=== PATIENT | female | born 1940 | race Caucasian/White ===

== ENCOUNTER 2022-06-15 12:00 | Observation (INO) | payer MEDICARE ==
[~2022-06-15] VITALS: Ht 154.9 cm; Wt 83.0 kg
[2022-06-15 11:40] LABS: HEMATOCRIT 37.2 % (36-48); MEAN CORPUSCULAR HEMOGLOBIN 28.5 pg (27.0-33.0); MEAN CORPUSCULAR HGB CONC 32.5 g/dL (32.0-36.0); MEAN CORPUSCULAR VOLUME 87.5 fL (79-99); PLATELET COUNT (AUTO) 273 K/uL (130-400); RED BLOOD CELL COUNT(AUTO) 4.25 MIL/uL (4.00-5.50); RED CELL DISTRIBUTION WIDTH 12.9 % (11.0-15.5); WHITE BLOOD COUNT (AUTO) 6.1 K/uL (4.8-10.8)
[2022-06-15 11:42] LABS: CHLORIDE,URINE RANDOM 138 mmol/L (110-250); POTASSIUM,URINE RANDOM 57 mmol/L (25-125); SODIUM,URINE RANDOM 123 mmol/l (40-220)
[2022-06-15 12:19] LABS: EOSINOPHILS % (MANUAL) 3 % (1-6); LYMPHOCYTES % (MANUAL) 36 % (22-44); MAN.DIFF COMMENT-IMPRESSION MANUAL DIFFERENTIAL; MONOCYTES % (MANUAL) 9 % (2-9); PLATELET MORPHOLOGY COMMENT ADEQUATE; SEGMENTED NEUTROPHILS % 52 % (40-70)
[2022-06-17 08:39] VITALS: BP 156/75
[2022-06-17] MEDS ORDERED: METF-444 PO ×2 (09:43)
[2022-06-17] MEDS ORDERED: ASPI-1197 PO (09:43)
[2022-06-17] MEDS ORDERED: ERGO500093 PO (09:43)
[2022-06-17] MEDS ORDERED: FOLI0.4T6 PO (09:43)
[2022-06-17] MEDS ORDERED: AMLO-258 PO (09:43)
[2022-06-17] MEDS ORDERED: LOSA100T58 PO (09:43)
[2022-06-17] MEDS ORDERED: ZINC220T4 PO (09:43)
[2022-06-17] MEDS ORDERED: VITA1TAB22 PO (09:43)
[2022-06-18] VITALS (27 sets, daily range): BP systolic 74–155; BP diastolic 33–63
[2022-06-18] MEDS ORDERED: BUPIVACAINE/EPI/PF 0.5% 30ML VIAL IJ ONE (05:12)
[2022-06-18] MEDS ORDERED: MORPHINE PF 100MG/10ML AMP IV ONE (05:12)
[2022-06-18] MEDS ORDERED: THROMBIN-JMI 20000 UNIT KIT TP ONE (05:12)
[2022-06-18] MEDS ORDERED: CEFAZOLIN SODIUM 1 GM VIAL ONE (05:12)
[2022-06-18] MEDS ORDERED: DEXMEDETOMIDINE HCL 200 MCG/2 ML VIAL IV ONE (05:22)
[2022-06-18] MEDS ORDERED: LIDOCAINE HCL 1% 20 ML VIAL ONE (05:29)
[2022-06-18] MEDS: CLINDAMYCIN IVPB 900MG/50ML 50 ML IV SCH ×7 (06:00→19:46)
[2022-06-18] MEDS ORDERED: 0.9%NACL 1000ML 1,000 ML IV ONE (06:14)
[2022-06-18 06:40] LABS: CREATININE 1.1 mg/dL (0.5-1.5); POTASSIUM 4.1 mmol/L (3.5-5.1)
[2022-06-18] MEDS ORDERED: ROCURONIUM 10MG/1ML SYR 10 MG/ML ML ONE (07:01)
[2022-06-18] MEDS ORDERED: ONDANSETRON 4MG INJ ONE (07:01)
[2022-06-18] MEDS ORDERED: PROPOFOL 10 MG/ML 20ML VIAL IV ONE (07:01)
[2022-06-18] MEDS ORDERED: FENTANYL CITRATE PF 50 MCG/1 ML 5ML AMP IV ONE (07:02)
[2022-06-18] MEDS ORDERED: DEXAMETHASONE SOD PHOSPHATE 10MG/ML 1ML VIAL ONE (07:26)
[2022-06-18] MEDS ORDERED: HYDROMORPHONE 1 MG INJ ONE (07:32)
[2022-06-18] MEDS ORDERED: PHENYLEPHRINE HCL 10 MG/ML 1ML VIAL IV ONE (08:20)
[2022-06-18] MEDS ORDERED: GLYCOPYRROLATE 1 MG/5 ML SYRINGE ONE (08:34)
[2022-06-18] MEDS ORDERED: NEOSTIGMINE 5MG/5ML SYR IV ONE (11:09)
[2022-06-18] MEDS ORDERED: METOCLOPRAMIDE 10 MG/2 ML VIAL ONE (11:23)
[2022-06-18] MEDS ORDERED: 0.9%NACL 10ML VIAL IVP PRN (11:30)
[2022-06-18] MEDS ORDERED: HYDROCODONE/ACETAMINOPHEN 5/325 MG TAB PO PRN (11:30)
[2022-06-18] MEDS: DEXAMETHASONE SOD PHOSPHATE 4 MG/ML 1ML VIAL IVP SCH ×3 (11:30→23:26)
[2022-06-18] MEDS: LACTATED RINGERS 1000ML 1,000 ML IV SCH ×2 (11:30→19:46)
[2022-06-18] MEDS ORDERED: MORPHINE 2 MG SYG IVP PRN (11:30)
[2022-06-18] MEDS ORDERED: PROMETHAZINE HCL 25 MG/ML 1ML AMPULE IM PRN (11:30)
[2022-06-18] MEDS ORDERED: ERGOCALCIFEROL (VITAMIN D2) 50,000 UNIT CAPSULE PO SCH (11:30)
[2022-06-18] MEDS ORDERED: EPHEDRINE SULFATE 50 MG/ML AMPULE ONE (11:40)
[2022-06-18] MEDS ORDERED: METFORMIN HCL 500 MG TABLET PO SCH (21:00)
[2022-06-19] VITALS: BP 127/67
[2022-06-19 04:00] VITALS: BP 140/50
[2022-06-19] MEDS: DEXAMETHASONE SOD PHOSPHATE 4 MG/ML 1ML VIAL IVP SCH (06:15)
[2022-06-19 08:00] VITALS: BP 126/62
[2022-06-19] MEDS ORDERED: LOSARTAN 100 MG TABLET PO SCH (09:00)
[2022-06-19] MEDS ORDERED: VITAMIN B COMPLEX 1 CAPSULE PO SCH (09:00)
[2022-06-19] MEDS ORDERED: AMLODIPINE 5 MG TAB PO SCH (09:00)
[2022-06-19] MEDS ORDERED: METFORMIN HCL 500 MG TABLET PO SCH (09:00)
[2022-06-19] MEDS ORDERED: ASPIRIN 81MG CHEW TAB PO SCH (09:00)
[2022-06-19] MEDS ORDERED: ZINC SULFATE 220 CAPSULE PO SCH (09:00)
[2022-06-19] MEDS ORDERED: FOLIC ACID 1 MG TABLET PO SCH (09:00)
== END 2022-06-19 12:40 | disposition home or self-care (01) ==
LOC: EDSTATUS 12:00 → DAHIP 06-18 05:51 → 4DH 06-18 12:45
PROVIDERS: ADMIT Neurological Surgery; ATTEND Neurological Surgery
DX: M48.061 Spinal stenosis, lumbar region without neurogenic claudication (principal); Z20.822 Contact with and (suspected) exposure to COVID-19; E11.9 Type 2 diabetes mellitus without complications; I10 Essential (primary) hypertension; E78.5 Hyperlipidemia, unspecified; Z88.5 Allergy status to narcotic agent; Z96.653 Presence of artificial knee joint, bilateral; Z79.899 Other long term (current) drug therapy; Z86.73 Personal history of transient ischemic attack (TIA), and cerebral infarction without residual deficits
CPT/HCPCS: 80051; 85025; 36415 ×2; 71045; 63047; 63048 ×2; 96376 ×2; 96365; 96375; 80048; 82948 ×5; 87426; 72020; A6260; J1100 ×5; G0378 ×24; G0379; A4663; J7120 ×2; A4344; J3010; J0690; J1170; J3490 ×8; J2710; J7030; J2704; J2405; J2765; J2370; A6219; A4649 ×2; A4215; A4223; A4222; A4221; A4600; A4510; J2274

== ENCOUNTER → 2022-11-09 | Outpatient (CLI) | payer MEDICARE ==
[~2022-11-09] MED LIST: AMLO-258 PO; ASPI-1197 PO; ERGO500093 PO; FOLI0.4T6 PO; LOSA100T58 PO; METF-444 PO; VITA1TAB22 PO; ZINC220T4 PO
== END | disposition home or self-care (01) ==
LOC: RAH 14:01
PROVIDERS: ATTEND Physical Medicine & Rehabilitation
DX: M43.5X6 Other recurrent vertebral dislocation, lumbar region (principal); M54.51 Vertebrogenic low back pain; M41.9 Scoliosis, unspecified; Z98.890 Other specified postprocedural states; Z88.5 Allergy status to narcotic agent; Z88.1 Allergy status to other antibiotic agents
CPT/HCPCS: 72114

== ENCOUNTER → 2023-02-25 | Outpatient (CLI) | payer MEDICARE ==
[~2023-02-25] MED LIST changes: -LOSA100T58 PO; +LOSA100T59 PO
== END | disposition home or self-care (01) ==
LOC: RAH 13:11
PROVIDERS: ATTEND Physical Medicine & Rehabilitation
DX: M51.27 Other intervertebral disc displacement, lumbosacral region (principal); M48.061 Spinal stenosis, lumbar region without neurogenic claudication; M47.816 Spondylosis without myelopathy or radiculopathy, lumbar region
CPT/HCPCS: 72148

== ENCOUNTER → 2024-04-07 | Outpatient (CLI) | payer MEDICARE ==
[~2024-04-07] MED LIST changes: +VITA-427 PO; -VITA1TAB22 PO
[2024-04-07 15:17] LABS: BASOPHILS # (AUTO) 0.07 K/uL (0.00-0.20); EOSINOPHILS # (AUTO) 0.32 K/uL (0.00-0.70); EOSINOPHILS % (AUTO) 4.4 % (0.0-8.0); HEMATOCRIT 36.4 % (36-48); IMMATURE GRANULOCYTE ABSOLUTE 0.02 K/uL (0-1); LYMPHOCYTES # (AUTO) 2.1 K/uL (1.0-4.8); LYMPHOCYTES % (AUTO) 29.1 % (21.0-51.0); MEAN CORPUSCULAR HEMOGLOBIN 29.2 pg (27.0-33.0); MEAN CORPUSCULAR HGB CONC 33.2 g/dL (32.0-36.0); MEAN CORPUSCULAR VOLUME 87.7 fL (79-99); MONOCYTES # (AUTO) 0.6 K/uL (0.1-1.0); MONOCYTES % (AUTO) 8.2 % (3.0-13.0); NEUTROPHILS # (AUTO) 4.1 K/uL (1.8-7.7); PLATELET COUNT (AUTO) 286 K/uL (130-400); RED BLOOD CELL COUNT(AUTO) 4.15 MIL/uL (4.00-5.50); RED CELL DISTRIBUTION WIDTH 13.2 % (11.0-15.5); WHITE BLOOD COUNT (AUTO) 7.2 K/uL (4.8-10.8)
[2024-04-07 15:27] LABS: CREATININE 1.1 mg/dL (0.5-1.0); POTASSIUM 4.4 mmol/L (3.5-5.1)
[2024-04-07 15:33] LABS: INR 0.96 (0.85-1.15); PROTHROMBIN TIME 10.4 SEC (9.6-11.6)
== END | disposition home or self-care (01) ==
LOC: LAB 11:24
PROVIDERS: ATTEND Internal Medicine Cardiovascular Disease
DX: Z01.812 Encounter for preprocedural laboratory examination (principal); I87.1 Compression of vein; I87.2 Venous insufficiency (chronic) (peripheral); I10 Essential (primary) hypertension; E11.51 Type 2 diabetes mellitus with diabetic peripheral angiopathy without gangrene; E66.9 Obesity, unspecified; M16.12 Unilateral primary osteoarthritis, left hip; R25.2 Cramp and spasm; M79.604 Pain in right leg; M79.605 Pain in left leg; Z98.890 Other specified postprocedural states; Z79.82 Long term (current) use of aspirin; Z68.31 Body mass index [BMI] 31.0-31.9, adult; Z79.899 Other long term (current) drug therapy
CPT/HCPCS: 36415; 80048; 85025; 85610; 85730

== ENCOUNTER 2024-06-27 13:02 | Emergency (ER) | payer MEDICARE ==
[~2024-06-27] VITALS: Ht 160 cm; Wt 81.6 kg
[2024-06-27 13:07] VITALS: TEMP 98.6
--- NOTE | 2024-06-27 13:18 | ERN ---
General Chief Complaint: Chest Pain Stated Complaint: CP Time Seen by MD: 13:03 Source: patient History of Present Illness Initial Comments PATIENT IS A AN 84-YEAR-OLD FEMALE COMING IN TO BE EVALUATED FOR LEFT-SIDED CHEST PAIN. PATIENT STATES THAT THE CHEST PAIN BEGAN FOUR DAYS AGO. SHE ALSO STATES THAT HE HAS BEEN HAVING BELCHING EPISODES HAS BEEN TAKING ANTACIDS FOR WHAT HE BELIEVES IT IS GASTRITIS. PATIENT DECIDED TO COME IN TO BE EVALUATED BECAUSE SHE STATES THAT SHE STARTED HAVING MORE TENDERNESS TO THE LEFT SHOULDER REGION. Allergies: Coded Allergies: ciprofloxacin (Verified Allergy, Unknown, 06/15/22) codeine (Verified Allergy, Unknown, 06/15/22) morphine (Verified Allergy, Unknown, 06/15/22) Home Meds Reported Medications Zinc Sulfate (Zinc) 50 Mg Tablet, 50 MG PO DAILY, TAB 06/17/22 Aspirin (Aspirin) 81 Mg Tab.chew, 81 MG PO DAILY, TAB.CHEW 06/17/22 Folic Acid (Folic Acid) 0.4 Mg Tablet, 0.4 MG PO DAILY, TAB 06/17/22 Vitamin B Complex (Vitamin B Complex) 1 Each Tablet, 1 EACH PO DAILY, TAB 06/17/22 Ergocalciferol (Vitamin D2) (Vitamin D2) 1,250 Mcg Capsule, 1250 MCG PO WEEKLY, CAP 06/17/22 Metformin HCl (Metformin HCl) 500 Mg Tablet, 500 MG PO HS, TAB 06/17/22 Metformin HCl (Metformin HCl) 500 Mg Tablet, 1000 MG PO AM, TAB 06/17/22 Amlodipine Besylate (Amlodipine Besylate) 10 Mg Tablet, 10 MG PO AM for 30 Days, #30 TAB 0 Refills 06/17/22 Losartan Potassium (Losartan Potassium) 100 Mg Tablet, 100 MG PO AM, TAB 06/17/22 Past Medical History Past Medical History: Diabetes-Type II Past Surgical History: Other Surgical History Other: BACK ROS Dictation CONSTITUTIONAL: NO CHILLS, NO FEVER, NO WEAKNESS, NO DIAPHORESIS, NO MALAISE. HEAD/FACE: NO SIGNS OF TRAUMA. EENT: NO EYE PAIN, NO BLURRED VISION, NO TEARING, NO DOUBLE VISION, NO EAR PAIN, NO EAR DISCHARGE, NO NOSE PAIN, NO NASAL CONGESTION, NO THROAT PAIN, NO THROAT SWELLING, NO MOUTH PAIN. RESPIRATORY: NO COUGH, NO ORTHOPNEA, NO SOB, NO STRIDOR, NO WHEEZING. CARDIOVASCULAR: NO CHEST PAIN, NO EDEMA, NO PALPITATIONS, NO SYNCOPE. GASTROINTESTINAL/ABDOMINAL: NO ABDOMINAL PAIN, NO CONSTIPATION, NO DIARRHEA, NO NAUSEA, NO VOMITING. GENITOURINARY: NO ABNORMAL DISCHARGE, NO DYSURIA, NO FREQUENT URINATION, NO HEMATURIA. NO COMPLAINTS OF PAIN IN THE GENITALS. MUSCULOSKELETAL: NO BACK PAIN, NO GOUT, NO JOINT PAIN, NO JOINT SWELLING, NO MUSCLE PAIN, NO MUSCLE STIFFNESS, NO NECK PAIN. INTEGUMENTARY: NO CHANGE IN COLOR, NO CHANGE IN HAIR/NAILS, NO DRYNESS, NO LESION, NO LUMPS, NO RASH. NEUROLOGICAL/PSYCH: NO ANXIETY, NOT DEPRESSED, NO EMOTIONAL PROBLEM, NO HEADACHE, NO NUMBNESS, NO PRE-EXISTING DEFICIT, NO HISTORY OF SEIZURES, NO TREMORS, NO WEAKNESS. HEMATOLOGIC/LYMPHATIC: NOT ANEMIC, NO HISTORY OF BLOOD CLOTS, NO APPARENT BLEEDING, NO BRUISING, GLANDS NOT SWOLLEN. ALL SYSTEMS NEGATIVE, EXCEPT NOTED. Physical Exam Physical Exam Dictation VITAL SIGNS: REVIEWED. GENERAL APPEARANCE: ALERT, ORIENTED X3, NO ACUTE DISTRESS, OBESE. HEAD AND FACE: NON-TRAUMATIC. EYES: PERRL, PINK CONJUNCTIVAS, EYELID NO TRAUMA, ANTERIOR CHAMBER CLEAR. EARS: PINNAS INTACT AND NO SIGNS OF TRAUMA OR ERYTHEMA. EAR CANALS CLEAR AND NO DISCHARGE. TMS NO ERYTHEMA. NOSE: NO DISCHARGE, NO BLEEDING. OROPHARYNX: MOUTH NORMAL, TEETH NO CARIES, TONGUE PINK. PHARYNX CLEAR, NO ERYTHEMA. TONSILS NO EXUDATES, NO ABSCESSES NOTED. MUCOUS MEMBRANE MOIST. NECK: SUPPLE, NON-TENDER, NO THYROMEGALY, NO MASSES, NO JVD, NO BRUITS. BREAST: DEFERRED. CHEST: NO TENDERNESS, NO CREPITUS, NO PARADOXICAL MOVEMENT, NO RETRACTIONS. LUNGS: CLEAR, WELL-VENTILATED, SYMMETRIC, NO RALES, NO WHEEZING, NO RHONCHI, NO STRIDOR, GOOD BREATH SOUNDS BILATERALLY. HEART: REGULAR RATE, REGULAR RHYTHM, NO MURMUR, NO GALLOPS. VASCULAR: NO PERIPHERAL EDEMA. ABDOMEN: SOFT, POSITIVE BOWEL SOUNDS, NONDISTENDED, NO GUARDING, NONTENDER, NO REBOUND, NO MASSES NO HEPATOMEGALY, NO SPLENOMEGALY, NO PEREZ'S SIGN, NO HERNIAS. RECTAL: DEFERRED. GENITAL: DEFERRED. NEUROLOGICAL: NORMAL SPEECH, GROSS MOTOR FUNCTION INTACT, GROSS SENSORY FUNCTION INTACT. MUSCULOSKELETAL: NECK NONTENDER, FULL RANGE OF MOTION, BACK NONTENDER, FULL RANGE OF MOTION. EXTREMITIES: NONTENDER, FULL RANGE OF MOTION. SKIN: COLOR PINK, DRY, NO TURGOR, NO RASH, NO LACERATIONS, NO ABRASIONS, NO CONTUSIONS. LYMPHATICS: DEFERRED. Results Laboratory and Microbiology Lab and Micro Result Laboratory Tests Test 06/27/24 13:17 06/27/24 13:38 06/27/24 14:05 White Blood Count 6.2 K/uL (4.8-10.8) Red Blood Count 4.20 MIL/uL (4.00-5.50) Hemoglobin 12.1 g/dL (12.0-16.0) Hematocrit 36.1 % (36-48) Mean Corpuscular Volume 86.0 fL (79-99) Mean Corpuscular Hemoglobin 28.8 pg (27.0-33.0) Mean Corpuscular Hemoglobin Concent 33.5 g/dL (32.0-36.0) Red Cell Distribution Width 12.5 % (11.0-15.5) Platelet Count 279 K/uL (130-400) Mean Platelet Volume 10.6 fL (7.5-10.5) H Immature Granulocyte % (Auto) 0.2 % (0-1) Neutrophils (%) (Auto) 58.0 % (40.0-77.0) Lymphocytes (%) (Auto) 29.4 % (21.0-51.0) Monocytes (%) (Auto) 9.9 % (3.0-13.0) Eosinophils (%) (Auto) 1.9 % (0.0-8.0) Basophils (%) (Auto) 0.6 % (0.0-5.0) Neutrophils # (Auto) 3.6 K/uL (1.8-7.7) Lymphocytes # (Auto) 1.8 K/uL (1.0-4.8) Monocytes # (Auto) 0.6 K/uL (0.1-1.0) Eosinophils # (Auto) 0.12 K/uL (0.00-0.70) Basophils # (Auto) 0.04 K/uL (0.00-0.20) Absolute Immature Granulocyte (auto 0.01 K/uL (0-1) Nucleated Red Blood Cells 0.0 % (0.0-0.19) Sodium Level 135 mmol/L (136-145) L Potassium Level 4.4 mmol/L (3.5-5.1) Chloride Level 101 mmol/L (101-111) Carbon Dioxide Level 23 mmol/L (21-32) Blood Urea Nitrogen 29 mg/dL (7-18) H Creatinine 1.2 mg/dL (0.5-1.0) H Glomerular Filtration Rate Calc 45 mL/min (>90) Random Glucose 157 mg/dL (70-105) H Total Calcium 9.8 mg/dL (8.5-10.1) Total Creatine Kinase 44 U/L (21-232) B-Type Natriuretic Peptide 41 pg/mL (0-100) Troponin I < 0.05 ng/mL (0.00-0.05) Urine Color YELLOW (YELLOW) Urine Appearance CLEAR (CLEAR) Urine pH 5.0 (5.0-8.0) Urine Specific Maxwell 1.011 (1.001-1.031) Urine Protein NEGATIVE mg/dL (NEGATIVE) Urine Glucose (UA) NEGATIVE mg/dL (NEGATIVE) Urine Ketones NEGATIVE mg/dL (NEGATIVE) Urine Occult Blood NEGATIVE (NEGATIVE) Urine Nitrate NEGATIVE (NEGATIVE) Urine Bilirubin NEGATIVE mg/dL (NEGATIVE) Urine Urobilinogen 0.2 mg/dL (0.2-1.0) Urine Leukocyte Esterase NEGATIVE [place]/uL Labs Reviewed?: Yes EKG/XRAY/US/CT/MRI EKG Comment 06/27/2024 TIME 1:01 P.M. VENTRICULAR RATE 74 SINUS RHYTHM [place] [address] WAVE ELEVATION OR DEPRESSION X-RAY Comment [place] [address] [address] IMAGING REPORT Signed PATIENT: DASHAWN WOODS MR#: [id number] : 1940 SEX: F AGE: 84 LOCATION: [facility] ORDER [id number] STATUS: REG ER REPORT#: [id number] SERVICE [id number] REASON: CHEST PAIN ORDERING PHYSICIAN: RACHELLE MUÑOZ MD PROCEDURE: CXR1VW - CHEST 1VW CHEST 1VW HISTORY: Chest pain COMPARISON: 06/15/2022 FINDINGS: A frontal projection of the chest was obtained. No acute pulmonary infiltrates is seen. The heart is normal in size. Prominent interstitial markings are seen. No evidence of aortic calcification is seen. IMPRESSION: 1. No acute pulmonary infiltrate is seen. DICTATED BY: TROY GAYTAN MD DATE: 06/27/241336 ELECTRONICALLY SIGNED BY: TROY GAYTAN MD DATE: 06/27/241338 [facility] MDM: Differential diagnosis: Left-sided chest pain, left shoulder strain Patient is a an 84-year-old female coming in to be evaluated for left shoulder left subsided chest discomfort. Patient states this pain began two days ago in his been getting worse she was concerned cardiac abnormality there is a came to be evaluated. Cardiac enzymes EKG within normal limits. Patient will be discharged with a diagnosis of left shoulder strain. Patient states that her pain subsided and wanted to leave I advised her labs had not been out yet. It is laboratory workup was completed patient was educated on findings. Patient will be discharged in stable condition with a diagnosis of left shoulder strain. ED Course Orders Procedure Category Date Status Time Vital Signs Per CPOE 06/27/24 Transmitted Routine 13:03 B-Type Natriuretic LAB 06/27/24 Complete Peptide 13:03 Chest 1vw RAD 06/27/24 Resulted 13:03 12 Lead Ekg Tracing- EKG 06/27/24 Logged Technical 13:03 Oxygen By Nc/Pulse Ox CPOE 06/27/24 Transmitted 13:03 Maintain Iv CPOE 06/27/24 Transmitted 13:03 Iv Insertion CPOE 06/27/24 Transmitted 13:03 Cardiac Monitoring CPOE 06/27/24 Transmitted 13:03 Pulse Oximetry With CPOE 06/27/24 Transmitted Vs And Prn 13:03 Cbc With Differential LAB 06/27/24 Complete 13:03 Activity: Br W/Brp CPOE 06/27/24 Transmitted With Assist 13:03 Creatine Kinase, Total LAB 06/27/24 Complete 13:03 Urinalysis Profile LAB 06/27/24 Complete 13:03 Troponin Poc Order LAB 06/27/24 Complete Only 13:03 Bedside Troponin-I LAB.ER 06/27/24 In Process (Poc) 13:03 Basic Metabolic Panel LAB 06/27/24 Complete 13:03 Vital Signs Date Time Temp Pulse Resp B/P (MAP) Pulse Ox O2 Delivery O2 Flow Rate FiO2 06/27/24 13:07 98.6 73 20 175/76 98 Room Air* 0 21 HEART Score Response (Comments) Value History: Low suspicion (0) 0 EKG: Normal 0 Age: > 65yrs (+2) 2 Risk Factors: No known risk factors (0) 0 Initial Troponin: Normal limit (0) 0 HEART Score Risk: Low Risk for MACE (1-3) Total 2 DX & DISP Disposition: Discharge Departure Impression: Primary Impression: Left shoulder strain Additional Impression: Chest pain, non-cardiac Condition: Stable Additional Instructions: You have been reviewed in the emergency department at [facility] after presenting with chest pain. After considering your history, your risk factors, your EKG and your blood test troponins, have been found to be at very low risk less than (1 in 100) of having a major adverse cardiac event (like heart attack) in the near future. In the " low risk" group, the risks of doing further tests and treatment as the inpatient outweighs the benefits. In many patients in the low risk group for the test of any sort or unnecessary, however he should discuss this further with his general practitioner who will understand the medical and personal backgrounds better. Because we have never declared you" no risk" we would suggest. 1 returning for medical review if you have further episodes of chest pain/arm pain or other concerning symptoms like dizziness, collapse, palpitations or shortness of breath. 2. Following up with your local doctor who will consider the need for further testing and will also ensure that any modifiable risk factors you may have for heart disease are optimally managed. Patient will be discharged in stable condition at the moment discharge patient states , no chest pain Referrals: LINDEN DEL VALLE (PCP) Time of Disposition: 15:14 RACHELLE MUÑOZ MD Jun 27, 2024 13:18
[2024-06-27 13:27] LABS: BASOPHILS # (AUTO) 0.04 K/uL (0.00-0.20); BASOPHILS % (AUTO) 0.6 % (0.0-5.0); EOSINOPHILS # (AUTO) 0.12 K/uL (0.00-0.70); EOSINOPHILS % (AUTO) 1.9 % (0.0-8.0); HEMATOCRIT 36.1 % (36-48); IMMATURE GRANULOCYTE ABSOLUTE 0.01 K/uL (0-1); LYMPHOCYTES # (AUTO) 1.8 K/uL (1.0-4.8); LYMPHOCYTES % (AUTO) 29.4 % (21.0-51.0); MEAN CORPUSCULAR HEMOGLOBIN 28.8 pg (27.0-33.0); MEAN CORPUSCULAR HGB CONC 33.5 g/dL (32.0-36.0); MONOCYTES # (AUTO) 0.6 K/uL (0.1-1.0); MONOCYTES % (AUTO) 9.9 % (3.0-13.0); NEUTROPHILS # (AUTO) 3.6 K/uL (1.8-7.7); PLATELET COUNT (AUTO) 279 K/uL (130-400); RED CELL DISTRIBUTION WIDTH 12.5 % (11.0-15.5); WHITE BLOOD COUNT (AUTO) 6.2 K/uL (4.8-10.8)
[2024-06-27 13:34] LABS: CREATININE 1.2 mg/dL (0.5-1.0); POTASSIUM 4.4 mmol/L (3.5-5.1)
--- NOTE | 2024-06-27 13:39 | HMCIMG ---
CHEST 1VW HISTORY: Chest pain COMPARISON: 06/15/2022 FINDINGS: A frontal projection of the chest was obtained. No acute pulmonary infiltrates is seen. The heart is normal in size. Prominent interstitial markings are seen. No evidence of aortic calcification is seen. IMPRESSION: 1. No acute pulmonary infiltrate is seen.
[2024-06-27 13:55] LABS: B-TYPE NATRIURETIC PEPTIDE 41 pg/mL (0-100)
[2024-06-27 14:43] LABS: APPEARANCE,URINE CLEAR (CLEAR); BILIRUBIN,URINE NEGATIVE (NEGATIVE); COLOR,URINE YELLOW (YELLOW); GLUCOSE, URINE (UA) NEGATIVE (NEGATIVE); KETONES,URINE NEGATIVE (NEGATIVE); LEUKOCYTE ESTERASE ,URINE NEGATIVE Leu/uL (NEGATIVE); NITRATE,URINE NEGATIVE (NEGATIVE); OCCULT BLOOD,URINE NEGATIVE (NEGATIVE); PROTEIN,URINE NEGATIVE (NEGATIVE); UROBILINOGEN,URINE 0.2 mg/dL (0.2-1.0)
[2024-06-27 15:13] LABS: ADD UA MICROSCOPIC NO
--- NOTE | 2024-06-27 15:39 | EKG ---
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
[2024-06-27 15:43] VITALS: BP 160/73; PULSE 71; RESP 18; O2SAT 98
== END 2024-06-27 15:44 | disposition home or self-care (01) ==
LOC: EDH 13:02
DX: S46.912A Strain of unspecified muscle, fascia and tendon at shoulder and upper arm level, left arm, initial encounter (principal); R07.89 Other chest pain; E11.9 Type 2 diabetes mellitus without complications; Z79.82 Long term (current) use of aspirin; Z88.1 Allergy status to other antibiotic agents; Z88.5 Allergy status to narcotic agent; X58.XXXA Exposure to other specified factors, initial encounter; Y93.89 Activity, other specified; Y92.89 Other specified places as the place of occurrence of the external cause; Y99.8 Other external cause status
CPT/HCPCS: 36415; 71045; 80048; 81003; 82550; 83880; 84484; 85025; 93005

== ENCOUNTER → 2024-07-24 | Outpatient (CLI) | payer MEDICARE ==
[2024-07-24 16:20] LABS: BASOPHILS # (AUTO) 0.04 K/uL (0.00-0.20); BASOPHILS % (AUTO) 0.7 % (0.0-5.0); EOSINOPHILS # (AUTO) 0.11 K/uL (0.00-0.70); HEMATOCRIT 38.4 % (36-48); IMMATURE GRANULOCYTE ABSOLUTE 0.02 K/uL (0-1); LYMPHOCYTES # (AUTO) 2.1 K/uL (1.0-4.8); LYMPHOCYTES % (AUTO) 36.7 % (21.0-51.0); MEAN CORPUSCULAR HEMOGLOBIN 28.6 pg (27.0-33.0); MEAN CORPUSCULAR HGB CONC 31.8 g/dL (32.0-36.0); MEAN CORPUSCULAR VOLUME 90.1 fL (79-99); MONOCYTES # (AUTO) 0.6 K/uL (0.1-1.0); MONOCYTES % (AUTO) 10.1 % (3.0-13.0); NEUTROPHILS # (AUTO) 2.8 K/uL (1.8-7.7); NEUTROPHILS % (AUTO) 50.1 % (40.0-77.0); PLATELET COUNT (AUTO) 266 K/uL (130-400); RED BLOOD CELL COUNT(AUTO) 4.26 MIL/uL (4.00-5.50); RED CELL DISTRIBUTION WIDTH 13.2 % (11.0-15.5); WHITE BLOOD COUNT (AUTO) 5.6 K/uL (4.8-10.8)
[2024-07-24 16:35] LABS: INR 0.95 (0.85-1.15); PROTHROMBIN TIME 10.3 SEC (9.6-11.6)
[2024-07-24 16:36] LABS: PARTIAL THROMBOPLASTIN TIME 25.7 SEC (26.3-35.5)
[2024-07-24 16:48] LABS: CREATININE 1.2 mg/dL (0.5-1.0); POTASSIUM 4.8 mmol/L (3.5-5.1)
== END | disposition home or self-care (01) ==
LOC: LAB 13:01
PROVIDERS: ATTEND Internal Medicine Cardiovascular Disease
DX: Z01.812 Encounter for preprocedural laboratory examination (principal); R07.9 Chest pain, unspecified; I87.1 Compression of vein; M16.12 Unilateral primary osteoarthritis, left hip; E66.9 Obesity, unspecified; I10 Essential (primary) hypertension; M48.062 Spinal stenosis, lumbar region with neurogenic claudication; M48.00 Spinal stenosis, site unspecified; I87.2 Venous insufficiency (chronic) (peripheral); R25.2 Cramp and spasm; E11.9 Type 2 diabetes mellitus without complications; I70.201 Unspecified atherosclerosis of native arteries of extremities, right leg; R60.1 Generalized edema; R60.0 Localized edema; L81.9 Disorder of pigmentation, unspecified; Z95.820 Peripheral vascular angioplasty status with implants and grafts; Z68.32 Body mass index [BMI] 32.0-32.9, adult
CPT/HCPCS: 36415; 80048; 85025; 85610; 85730

== ENCOUNTER → 2024-12-11 | Outpatient (CLI) | payer MEDICARE ==
[2024-12-11 13:15] LABS: BASOPHILS # (AUTO) 0.03 K/uL (0.00-0.20); BASOPHILS % (AUTO) 0.5 % (0.0-5.0); EOSINOPHILS # (AUTO) 0.19 K/uL (0.00-0.70); EOSINOPHILS % (AUTO) 3.1 % (0.0-8.0); HEMATOCRIT 35.6 % (36-48); IMMATURE GRANULOCYTE ABSOLUTE 0.02 K/uL (0-1); LYMPHOCYTES # (AUTO) 1.6 K/uL (1.0-4.8); LYMPHOCYTES % (AUTO) 26.1 % (21.0-51.0); MEAN CORPUSCULAR HEMOGLOBIN 28.8 pg (27.0-33.0); MEAN CORPUSCULAR VOLUME 89.9 fL (79-99); MONOCYTES # (AUTO) 0.6 K/uL (0.1-1.0); NEUTROPHILS # (AUTO) 3.7 K/uL (1.8-7.7); PLATELET COUNT (AUTO) 228 K/uL (130-400); RED BLOOD CELL COUNT(AUTO) 3.96 MIL/uL (4.00-5.50); RED CELL DISTRIBUTION WIDTH 13.4 % (11.0-15.5); WHITE BLOOD COUNT (AUTO) 6.1 K/uL (4.8-10.8)
[2024-12-11 13:23] LABS: INR 0.98 (0.85-1.15); PROTHROMBIN TIME 10.4 SEC (9.6-11.6)
[2024-12-11 13:25] LABS: PARTIAL THROMBOPLASTIN TIME 25.9 SEC (26.3-35.5)
[2024-12-11 13:29] LABS: CREATININE 1.1 mg/dL (0.5-1.0); POTASSIUM 4.4 mmol/L (3.5-5.1)
== END | disposition home or self-care (01) ==
LOC: LAB 11:09
PROVIDERS: ATTEND Internal Medicine Cardiovascular Disease
DX: Z01.812 Encounter for preprocedural laboratory examination (principal); I87.2 Venous insufficiency (chronic) (peripheral); I87.1 Compression of vein; M79.604 Pain in right leg
CPT/HCPCS: 36415; 80048; 85025; 85610; 85730